=== PATIENT | female | born 1995 ===

== ENCOUNTER → 2021-06-08 | Outpatient (CLI) | payer SELFPAY ==
[2021-06-15 12:08] LABS: HSV-1 DNA Negative (Negative); HSV-2 DNA Negative (Negative)
== END ==
LOC: LAB SHORT 18:49
DX: L08.9 Local infection of the skin and subcutaneous tissue, unspecified (principal); Z20.2 Contact with and (suspected) exposure to infections with a predominantly sexual mode of transmission
CPT/HCPCS: 87529